=== PATIENT | female | born 2000 | race American Indian/Alaskan Native ===

== ENCOUNTER 2019-03-02 09:31 | Emergency (ER) | payer OTHER ==
[2019-03-02] MEDS ORDERED: Lidocaine 5% Patch TD ONE ×2 (10:34→10:55)
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
[2019-03-02 11:47] VITALS: BP 126/78; PULSE 82; RESP 18; TEMP 98.1
[2019-03-02 11:48] VITALS: O2SAT 97
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
== END 2019-03-02 11:47 | disposition home or self-care (01) ==
LOC: C.ER 09:31
DX: S30.1XXA Contusion of abdominal wall, initial encounter (principal); S80.12XA Contusion of left lower leg, initial encounter; V49.59XA Passenger injured in collision with other motor vehicles in traffic accident, initial encounter; Y92.410 Unspecified street and highway as the place of occurrence of the external cause